=== PATIENT | female | born 1960 ===

== ENCOUNTER 2016-07-15 09:54 | Emergency (ER) | payer SELFPAY ==
[2016-07-15 09:58] VITALS: TEMP 98; BMI 25.4
[2016-07-15] MEDS ORDERED: Sodium Chloride 0.9% 1,000 ML IV SCH (10:30)
--- NOTE | 2016-07-15 10:42 | ED PDOC ---
HPI: Headache Time Seen by Provider: 07/15/16 10:04 Chief Complaint (Nursing): Headache Chief Complaint (Provider): headache History Per: Patient History/Exam Limitations: no limitations Onset/Duration Of Symptoms: Days (x 1) Associated Symptoms: Photophobia Additional Complaint(s): Patient is a 56 year old female, with a previous medical history of migraines, who presents to the ED with complaints of a migraine headache associated with photophobia which began yesterday (last night). Pt also c/o developing left ear pain in the middle of the night along with a temperature of 100.4 which is unusual of her typical migraines. Pt denies any neck pain. She reports taking floricet last night and Tylenol at 3 AM with no relief and ranks her pain as an 8/10. Patient is in the the [place] visiting from [place] for 2 weeks. 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 [employer]) PMD: none provided Past Medical History Reviewed: Historical Data, Nursing Documentation, Vital Signs Vital Signs: Last Vital Signs Temp 98.0 F 07/15/16 09:55 Pulse 94 H 07/15/16 09:55 Resp 20 07/15/16 09:55 BP 110/57 L 07/15/16 09:55 Pulse Ox 97 07/15/16 09:55 - Medical History PMH: Migraine - Surgical History Surgical History: Appendectomy - Family History Family History: States: CAD Other Family History: cancer - Social History Current smoker - smoking cessation education provided: Yes - Home Medications Home Medications: Ambulatory Orders Medication Instructions Recorded Acetaminophen with Codeine 2 tab PO Q6 PRN #8 tablet 07/15/16 [Tylenol with Codeine #3 Tablet] Azithromycin [Zithromax] 1 tab PO DAILY #7 tablet 07/15/16 - Allergies Allergies/Adverse Reactions: Allergies Allergy/AdvReac Type Severity Reaction Status Date / Time aspirin Allergy SWELLING Verified 07/15/16 10:20 Penicillins Allergy SWELLING Verified 07/15/16 10:21 Review of Systems ROS Statement: Except As Marked, All Systems Reviewed And Found Negative Eyes: Positive for: Other (photophobia ) ENT: Positive for: Ear Pain (left ) Respiratory: Negative for: Shortness of Breath Gastrointestinal: Negative for: Vomiting Musculoskeletal: Negative for: Neck Pain Neurological: Positive for: Headache Physical Exam - Reviewed Nursing Documentation Reviewed: Yes Vital Signs Reviewed: Yes - Physical Exam Appears: Positive for: Non-toxic, Uncomfortable (crying ) Head Exam: Positive for: ATRAUMATIC, NORMAL INSPECTION, NORMOCEPHALIC Eye Exam: Positive for: Normal appearance, EOMI, PERRL, Other (photophobic ) ENT: Positive for: TM Is/Are (right TM within normal limits. left TM erythematous and bulging ). Negative for: Other (no mastoid tenderness ) Neck: Positive for: Normal, Painless ROM, Supple Cardiovascular/Chest: Positive for: Regular Rate, Rhythm Respiratory: Positive for: Normal Breath Sounds Gastrointestinal/Abdominal: Positive for: Normal Exam, Bowel Sounds, Soft. Negative for: Tenderness Back: Positive for: Normal Inspection Rectal: Positive for: Deferred Extremity: Positive for: Normal ROM Neurologic/Psych: Positive for: Alert, Oriented. Negative for: Motor/Sensory Deficits, Other (meningeal signs ) - Laboratory Results Result Diagrams: 07/15/16 10:45 07/15/16 10:45 - ECG O2 Sat by Pulse Oximetry: 97 (RA) Pulse Ox Interpretation: Normal Medical Decision Making Medical Decision Making: Initial Impression: Migraine headache with left otitis media. Initial Plan: * labs * decadron (I usually give Toradol but pt with aspirin allergy) * IV NS 1,000 ml at 500 ml/hr * reglan * tylenol * zithromycin * reevaluation Progress Notes: 11:45 AM - Pt sleeping; looks much more comfortable; dexamethasone is running 1:20 PM - Pt feels much better. Will d/c home. Scribe Attestation: Documented by Xiomara Conway, acting as a scribe for Art Canela D.O. Provider Scribe Attestation: All medical record entries made by the Scribe were at my direction and personally dictated by me. I have reviewed the chart and agree that the record accurately reflects my personal performance of the history, physical exam, medical decision making, and the department course for this patient. I have also personally directed, reviewed, and agree with the discharge instructions and disposition. Disposition - Clinical Impression Clinical Impression: Migraine, Otitis media - Patient ED Disposition Is Patient to be Admitted: No - Disposition Referrals: [facility] [Outside] Disposition: Routine/Home Disposition Time: 13:20 Condition: IMPROVED Additional Instructions: Ernie, thank you for letting us take care of you today. Return to the ER if your symptoms worsen, or if any problems. Take the medication listed below as prescribed. You should follow up at our [facility] next week. Call the phone number listed below to make an appointment. Prescriptions: Acetaminophen with Codeine [Tylenol with Codeine #3 Tablet] 2 tab PO Q6 PRN #8 tablet PRN Reason: Pain, Severe (8-10) Azithromycin [Zithromax] 1 tab PO DAILY #7 tablet Instructions: Migraine Headache (ED), Otitis Media (ED) Forms: [employer] ([employer]) (Yoruba) Print Language: GAMBIAN - POA Present On Arrival: None
[2016-07-15 11:09] LABS: BASO # 0.1 K/uL (0.0-0.2); BASO % 0.8 % (0.0-2.0); EOS # 0.2 K/uL (0.0-0.7); EOS % 2.8 % (0.0-4.0); HEMATOCRIT 37.1 % (34.0-47.0); LYMPH # 2.7 K/uL (1.0-4.3); LYMPH % 37.2 % (20.0-40.0); MEAN CELL VOLUME 88.5 fl (81.0-99.0); MEAN CORPUSCULAR HEMOGLOBIN 29.2 pg (27.0-31.0); MEAN PLATELET VOLUME 8.5 fl (7.2-11.7); MONO # 0.5 K/uL (0.0-0.8); MONO % 6.7 % (0.0-10.0); NEUT # 3.9 K/uL (1.8-7.0); NEUT % 52.5 % (50.0-75.0); WHITE BLOOD COUNT 7.4 K/uL (4.8-10.8)
[2016-07-15 11:35] LABS: BLOOD UREA NITROGEN 12 mg/dl (7-17); CALCIUM 9.7 mg/dL (8.4-10.2); CARBON DIOXIDE 31 mmol/L (22-30); CHLORIDE 103 mmol/L (98-107); GFR AFRICAN-AMERICAN > 60; GLUCOSE,RANDOM 89 mg/dL (65-105); SODIUM 143 mmol/l (132-148)
[2016-07-15 13:44] VITALS: BP 104/64; PULSE 74; RESP 17; O2SAT 98
== END 2016-07-15 13:43 | disposition home or self-care (01) ==
LOC: H.ER 09:54
DX: G43.909 Migraine, unspecified, not intractable, without status migrainosus (principal); H66.92 Otitis media, unspecified, left ear; F17.200 Nicotine dependence, unspecified, uncomplicated; Z88.0 Allergy status to penicillin
CPT/HCPCS: 80048; 85025; 96361; 96365; 96375; 99285; J1100; J2765; J7040